=== PATIENT | male | born 1975 | race Two or more races ===

== ENCOUNTER 2024-04-02 06:40 | Day surgery (SDC) | payer MEDICAID, SELFPAY ==
[2024-03-30 13:38] VITALS: BMI 26.4
[2024-04-02] VITALS (9 sets, daily range): BP systolic 98–127; BP diastolic 56–90; PULSE 57–97; RESP 12–19; TEMP 36.5–36.7; O2SAT 97–100
[2024-04-02] MEDS: DiphenhydrAMINE INJ 50 MG/ML VIAL 25 MG IV (07:26)
[2024-04-02] MEDS: MIDAZOLAM INJ 1 MG/ML VIAL 2 ML (ASD USE ONLY) 2 MG IV (07:26)
[2024-04-02] MEDS: fentaNYL CIT INJ 50 mCg/ML AMP 2ML (ASD USE ONLY) IV (07:26)
--- NOTE | 2024-04-02 07:59 | SUR.PHASEII ---
0741: Pt received in recovery. Report from Sienna BERTRAND. Pt sleepy. Easily aroused with eye opening then drifts back to sleep. Resp even, unlabored. VS stable. No c/o pain, discomfort.
--- NOTE | 2024-04-02 08:14 | SUR.PHASEII ---
0805: Pt has c/o abdominal cramping and pressure. Placed in right lateral position in attempt to pass flatus. VS stable.
--- NOTE | 2024-04-02 08:30 | SUR.PHASEII ---
0815: Pt not passing flatus. Placed in left lateral position. 0825: Pt afraid to pass flatus. Stated he needed to have a bowel movement. Wished to sit on the toilet. 0830: Pt more awake, alert. VS stable. Pt assisted to restroom. Ambulation steady.
--- NOTE | 2024-04-02 08:58 | SUR.PHASEII ---
0858: Pt out of restroom. Stated he had passed moderate amount of flatus and is feeling relief. Pt offered po fluids. Consumed with no difficulty swallowing and no n/v. Pt and stated understanding of discharge instructions. Pt discharged from [facility] in stable condition.
== END 2024-04-02 08:58 | disposition home or self-care (01) ==
PROVIDERS: Referring Provider Surgery; Visit Provider Surgery
PROC: 0DBE8ZX Excision of Large Intestine, Via Natural or Artificial Opening Endoscopic, Diagnostic (ICD-10-PCS; CPT 45380; principal; 2024-04-02 07:30)
DX: Z12.11 Encounter for screening for malignant neoplasm of colon (principal); D12.3 Benign neoplasm of transverse colon; K57.30 Diverticulosis of large intestine without perforation or abscess without bleeding
CPT/HCPCS: 45380; A4649; J1200; J2250; J3010

== ENCOUNTER 2024-12-31 19:13 | Emergency (ER) | payer MEDICAID, SELFPAY ==
[2024-12-31 19:14] VITALS: BMI 28.4
[2024-12-31 20:01] VITALS: BP 144/91; PULSE 94; RESP 20; TEMP 37.3; O2SAT 97
--- NOTE | 2024-12-31 20:04 | XR_ITS ---
Examination: CT chest, without intravenous contrast. CT abdomen, without intravenous contrast. CT pelvis, without intravenous contrast. 2-D sagittal and coronal reconstructions. 3-D reconstructions. Date and time of exam:December 31, 2024, 2056 hrs., Comparison December 22, 2016 Indications: Onset chest and abdominal pain today CTDI vol (mgy) 8.64 DLP (MGycm)663 Technique: Multiple CT images, 3.0 mm slice thickness, obtained chest, abdomen, pelvis, with the high-resolution 64 slice scanner.. Sagittal and coronal 2-D reconstructions are obtained. 3-D reconstructions Low dose protocols were performed. One or more of the following dose reduction techniques were used; automated exposure control, adjustment of the mA and/or KV according to patient size, use of iterative reconstruction technique. Findings: No thoracic aortic aneurysmal dilatation Pulmonary artery segments are not enlarged. Mild calcification left anterior descending coronary artery 3 mm pulmonary nodule left upper lobe 3 mm pulmonary nodule right lower lobe 3 mm pulmonary nodule right lower lobe No pneumonia or pulmonary edema, no pleural disease No visualized liver or splenic lesion No gallstones No pancreatic or adrenal mass Significant scarring right kidney moderate scarring left kidney Right renal calculi, multiple 1 to 2 mm, no hydronephrosis or ureteral calculi Aorta normal size No bowel obstruction Normal appendix No diverticulitis Urinary bladder intact Advanced degenerative disc disease L5-S1 Impression: Noncalcified subcentimeter pulmonary nodules as above, with this study as baseline recommend 6 month follow-up CT chest without contrast No pneumonia pulmonary edema or pleural disease Significant scarring right kidney, moderate scarring left kidney Nonobstructing right renal calculi, no hydronephrosis or ureteral calculi Normal appendix No bowel obstruction or diverticulitis
--- NOTE | 2024-12-31 20:04 | EKG_ITS ---
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
--- NOTE | 2024-12-31 20:04 | PD.EDRME ---
Rapid Medical Screening Exam RME Arrival date/time: 12/31/24 19:13 This is a case of 49-year-old male who came in in the emergency room due to generalized abdominal pain today associated with nausea vomiting worsening of the symptoms now with chest pain shortness of breath and fever this prompted consult to primary care physician and was sent here in the ER for CT scan Chief Complaint: Shortness of Breath/Dyspnea Time Seen by Provider: 12/31/24 20:03 Vital signs: Vital Signs Temperature 99.1 F 12/31/24 20:01 Pulse Rate 94 12/31/24 20:01 Respiratory Rate 20 12/31/24 20:01 Blood Pressure 144/91 H 12/31/24 20:01 Pulse Oximetry (%) 97 12/31/24 20:01 Oxygen Delivery Method Room Air 12/31/24 20:01
[2024-12-31 20:49] LABS: Collection Type, Urine Clean Catch; Squamous Epithelial Cell,Urine 0 /hpf (0-5); WBC,Urine 0 /hpf (0-5)
[2024-12-31 20:52] LABS: Basophils # (Auto) 0.1 Thou/mm3 (0.0-0.2); Basophils % (Auto) 1 % (0-2.5); Eosinophils # (Auto) 0.0 Thou/mm3 (0.0-0.5); Eosinophils % (Auto) 0 % (0-10); Hematocrit 41.4 % (41.0-53.0); Hemoglobin 14.5 g/dL (13.5-16.0); Immature Granulocytes Auto 0.02 Thou/mm3 (0.00-0.00); Lymphocytes # (Auto) 0.9 Thou/mm3 (1.0-4.8); Lymphocytes % (Auto) 12 % (10-50); Mean Corpuscular HGB Conc 35.0 g/dl (31.0-37.0); Mean Corpuscular Hemoglobin 31.0 pg (25.0-35.0); Mean Corpuscular Volume 89 fL (80-100); Monocytes # (Auto) 0.9 Thou/mm3 (0.0-0.8); Monocytes % (Auto) 12 % (0-12); Neutrophils # (Auto) 6.2 Thou/mm3 (1.8-7.7); Neutrophils % (Auto) 76 % (37-80); Nucleated Red Blood Cell # 0.00 Thou/mm3 (0.00-0.00); Nucleated Red Blood Cell % 0 /100 WBC (0); Platelet Count 204 Thou/mm3 (140-440); RDW Standard Deviation 42.9 fL (35.1-43.9); Red Blood Count 4.67 Miln/mm3 (4.50-5.90); White Blood Count 8.1 Thou/mm3 (3.8-10.6)
[2024-12-31 21:04] LABS: Bacteria,Urine Rare; Bilirubin,Urine Negative (Negative); Blood,Urine 1+ (Negative); Clarity,Urine Clear (Clear/Hazy); Color,Urine Colorless (Lt Yel-Yel); Glucose, Urine Negative (Negative); Ketones,Urine Negative (Negative); Leukocyte Esterase,Urine Negative (Negative); Nitrite,Urine Negative (Negative); PH,Urine 6.5 (5.0-7.0); Protein,Urine Negative (Neg - Trace); RBC,Urine 1 /hpf (0-3); Specific Gravity,Urine 1.004 (1.001-1.035); Urobilinogen,Urine Negative mg/dL (0.0-1.0)
[2024-12-31 21:18] LABS: Alanine Aminotransferase 37 U/L (10-49); Albumin, Serum 4.5 gm/dL (3.5-5.0); Albumin/Globulin Ratio 1.8 (1.2-2.2); Alkaline Phosphatase 91 U/L (46-116); Anion Gap 8 (7-16); Aspartate Amino Transferase 34 U/L (0-34); BUN/Creatinine Ratio 6 Ratio (12-20); Bilirubin,Total 0.5 mg/dL (0.3-1.2); Blood Urea Nitrogen 7 mg/dL (9-23); Calcium 9.3 mg/dL (8.3-10.6); Calcium (Corrected) 9.3 mg/dL (8.5-10.1); Carbon Dioxide 23.7 mMol/L (20.0-31.0); Chloride 105 mMol/L (98-107); Creatinine (Component) 1.2 mg/dL (0.6-1.3); Estimated Creatinine Clearance 84.7 mL/min (>60); Globulin 2.5 gm/dL (2.3-3.5); Glucose 123 mg/dL (74-106); Lipase 27 U/L (12-53); Osmolality,Calculated 272 (275-295); Potassium 3.7 mMol/L (3.4-5.1); Sodium 137 mMol/L (136-145); Total Protein 7.0 gm/dL (5.7-8.2); Troponin I < 0.020 ng/mL (0.0-0.045); eGFR > 60 See Note
[2024-12-31 21:35] VITALS: BP 137/85; PULSE 84; RESP 16; TEMP 37.6; O2SAT 98
--- NOTE | 2024-12-31 22:13 | EDNOTE_ITS ---
ED General RME/HPI General Chief complaint: Shortness of Breath/Dyspnea Stated complaint: FEVER, FEELS LIKE PASSING OUT, SOB Time Seen by Provider: 12/31/24 20:03 Arrival date/time: 12/31/24 19:13 Fever epigastric pain with nausea and vomiting onset approximately 2 to 3 days ago. Denies shortness of breath difficulty breathing at this time. RME / HPI RME / HPI narrative: 12/31/24 19:13 This is a case of 49-year-old male who came in in the emergency room due to generalized abdominal pain today associated with nausea vomiting worsening of the symptoms now with chest pain shortness of breath and fever this prompted consult to primary care physician and was sent here in the ER for CT scan Related Data Previous Rx's ?Medication ?Instructions ?Recorded pantoprazole 20 mg tablet,delayed 20 mg PO QDAY #20 ta bs 12/31/24 release (Protonix) Allergies Allergy/AdvReac Type Severity Reaction Status Date / Time gabapentin Allergy Intermediate Rash Verified 04/02/24 07:52 Review of Systems Review of Systems Narrative Review of Systems: GEN: + fever, no chills, no weight loss EYES: No discharge, no visual changes, no pain HEENT: No ear pain, no congestion, no sore throat PULM: No shortness of breath, no cough, no congestion CV: No chest pain, no dyspnea on exertion, no palpitations GI: No nausea, no vomiting, no diarrhea, + pain, no constipation : No frequency, no urgency, no dysuria MUSC/SKEL: No joint pain, no back pain SKIN: No rash PSYCH: No hallucinations, no depression HEME/LYMPH: No easy bleeding or bruising tendencies NEURO: No weakness, no headache Past Medical History Past Medical History NEUROLOGIC: Positive Neurological Disorders and Cerebrovascular Accident (mild); Negative Seizures CARDIAC: Positive Cardiac Disorders and Hypertension (NO MEDS); Negative Congestive Heart Failure RESPIRATORY: Negative Chronic Obstructive Pulmonary Disease (COPD) GASTROINTESTINAL: Positive Gastrointestinal Disorders (CONSTIPATION) GENITOURINARY: Negative Genitourinary Disorders or Renal Disease MUSCULOSKELETAL: Negative Musculoskeletal Disorders 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) ENDOCRINE: Negative Endocrine Disorders, Diabetes Mellitus Type 1 or Diabetes Mellitus Type 2 HEMATOLOGIC: Negative Blood Disorders PSYCHO/SOCIAL: Positive Anxiety and Post Traumatic Stress Disorder OTHER HISTORY: Positive Falls and Human Immunodeficiency Virus (HIV); Negative Blood Transfusions, Anesthesia Reactions or Cancer Social History SMOKING STATUS: Never smoker ED Exam Narrative Physical exam: [General: In mild discomfort but not in any acute distress Head normocephalic HEENT: Eyes pupils are PERRLA EOMs are intact mouth pink moist membranes uvula is midline swallow symmetrical phonation is normal within acceptable limits Neck is supple nontender Chest equal chest rise nontender to palpation Respiratory: Clear to auscultation no wheezes crackles or rubs CV: Rate rhythm is regular no murmurs rubs or clicks Abdomen is distended secondary to body habitus soft mild epigastric tenderness, no masses positive bowel sounds all 4 quadrants Back: No CVA tenderness no spinous process tenderness from cervical spine thoracic and lumbar spine Skin: Intact no petechiae rash induration ulceration or crepitus Extremities: Moving all extremity against resistance cap refill less than 2 seconds neurosensory intact Neuro: Awake alert oriented x3 Glascow coma 15 no focal deficits] Course Course Course Narrative: Patient is COVID-positive but no other acute finding I suspect the patient has reflux disease secondary to decreased appetite last couple days resulting from the COVID. This is resulted in dyspepsia. Patient be discharged home with COVID instructions and Protonix. Quality Measures none Orders Category Date Time Status Bedside COVID-19 Antigen Test NOW Care 12/31/24 20:04 Active EKG (ED ONLY) *Do not use* NOW Care 12/31/24 20:[address] chest abdomen pelvis wo Stat Exams 12/31/24 20:04 Completed EKG (ED Only) Stat Exams 12/31/24 20:04 Draft CBC Stat Lab 12/31/24 20:18 Completed Comprehensive Metabolic Panel Stat Lab 12/31/24 20:18 Completed Lipase Stat Lab 12/31/24 20:18 Completed Troponin I Stat Lab 12/31/24 20:18 Completed Urinalysis Stat Lab 12/31/24 20:27 Completed Vital Signs Vital signs: Vital Signs Temperature 99.1 F 12/31/24 20:01 Pulse Rate 94 12/31/24 20:01 Respiratory Rate 20 12/31/24 20:01 Blood Pressure 144/91 H 12/31/24 20:01 Pulse Oximetry (%) 97 12/31/24 20:01 Oxygen Delivery Method Room Air 12/31/24 20:01 Discharge Plan Plan Patient Disposition: HOME (Self Care) Patient condition on transfer: Stable Prescriptions/Referrals Prescriptions/Med Rec: New pantoprazole [Protonix] 20 mg tablet,delayed release (DR/EC) 20 mg PO QDAY Qty: 20 0RF Referrals: No Primary/Family,Physician [Primary Care Provider] - In 1 week Problem List Clinical Impression: COVID, Acid reflux Patient/Caregiver Discharge Instructions Other Activity Instructions:: Avoid greasy spicy and fatty foods for the next week and a half, bland diet. Drink plenty of water. Take ibuprofen or Tylenol for fever or pain follow-up with your primary care doctor in 1 to 2 weeks. There is worsening as symptoms in spite of these medications return the emergency room medially for further evaluation. Education Materials: COVID-19 Home Care, ED GERD (Adult) Print Language: Slovak Stand Alone Forms: [employer] Award Info., Patient Portal Info Letter, Work/School Release PA/CUSTOMER SUCCESS ASSOCIATE Supervising Physician PA/CUSTOMER SUCCESS ASSOCIATE Supervising Physician: Jin Bridges ENP MDM Clinical Information Provided by: patient Medical Records reviewed [facility] Meds/Rx considered, not ordered None Labs/Rad/Tests considered, not ordered None Chronic Illness/Social Conditions which may negatively complicate care or outcome(s)-explain: None or not applicable EKG EKG not done Labs Labs: interpreted by ga Lab(s) Interpretation(s): CBC shows no acute leukocytosis anemia thrombocytopenia CMP shows no acute electrolyte imbalances renal impairment transaminitis or T. bili elevation. Lipase is 27 Urine is colorless 1+ blood no signs of infection. COVID is positive Imaging Imaging interpretation: interpreted by me Imaging Interpretation(s): CT chest abdomen pelvis shows some calcification nodules in the chest cavity that warrant a 6-month follow-up. No other acute finding requires emergent or immediate intervention. Medication Administration(s) none None Diagnosis Differential Diagnosis ED Complaint MDM: Pneumonia sepsis dyspepsia COVID
[2024-12-31 22:58] VITALS: BP 145/85; PULSE 85; RESP 14; TEMP 37; O2SAT 99
== END 2024-12-31 23:01 | disposition home or self-care (01) ==
PROVIDERS: Nurse Practitioner Family; Emergency Provider Emergency Medicine
DX: U07.1 COVID-19 (principal); K21.9 Gastro-esophageal reflux disease without esophagitis; J98.4 Other disorders of lung; I49.1 Atrial premature depolarization
CPT/HCPCS: 36415; 71250; 74176; 80053; 81001; 83690; 84484; 85025; 87811; 93005; 99283